=== PATIENT | male | born 1960 | race Caucasian/White ===

== ENCOUNTER → 2018-10-07 07:09 | Outpatient (CLI) | payer OTHER, SELFPAY ==
--- NOTE | 2018-10-07 07:19 | RAD_ITS ---
STUDY: X-RAY CHEST REASON FOR EXAM: Male, 58 years old. History of sarcoidosis with left-sided chest pain. TECHNIQUE: PA and lateral views of the chest. COMPARISON: 10/13/2015. FINDINGS: The previously noted prominent interstitial markings in the lung bases have improved. No new focal infiltrate is seen. There is no demonstrated pleural abnormality. Normal size heart. Normal mediastinum and abhi. Normal visualized pulmonary arteries. There is mild atherosclerotic tortuosity of the aortic arch and descending thoracic aorta. Normal visualized thoracic spine. Normal visualized ribs, clavicles, and shoulders. There is no demonstrated abnormality of the visualized soft tissue structures of the upper abdomen. RAD/Chest PA and Lateral IMPRESSION: No active pulmonary disease. Electronically Signed: Paul Stearns MD at 8:18 EDT Tel , Service support ,
--- NOTE | 2018-10-07 07:28 | MRI_ITS ---
STUDY: MRI BRAIN WITH AND WITHOUT CONTRAST REASON FOR EXAM: Male, 58 years old. Optic neuritis. Episodes of blurred vision. Lightheaded. TECHNIQUE: Standardized multiplanar fat and water weighted pulse sequences were obtained. Dotarem 20 IV was administered for the contrast portion of the examination. Thin multiplanar sections through the orbits were also performed. COMPARISON: None. FINDINGS: No restricted diffusion to suspect acute or subacute ischemic infarct. No focal signal abnormalities throughout the brain parenchyma. Normal size of the ventricles and extra-axial spaces for the patient's age. Normal white matter tracts of the supratentorial brain. Normal bilateral basal ganglia. Normal thalami. There is no extra-axial fluid accumulation. Normal flow voids within the major intracranial circulation suggesting patency by spin echo criteria. Normal venous enhancement. There is no enhancing intra-axial or extra-axial abnormality. Normal sella turcica, pituitary gland, infundibular stalk, optic chiasm and hypothalamus. Normal tectal plate and pineal gland. Normal midbrain, sofia and medulla. Normal cerebellum. Normal basal cisterns. Normal bilateral temporal bones. Normal bilateral internal auditory canals. No demonstrated orbital abnormality, within the constraints of a routine brain study. Normal visualized paranasal sinuses. Normal calvarium and skull base. Normal visualized soft tissue structures. Normal visualized upper cervical spine. MRI/Brain W/WO Contrast IMPRESSION: Normal unenhanced and enhanced MRI of the brain and orbits. Electronically Signed: Nilo Flores MD at 13:36 EDT , Service support ,
== END ==
PROVIDERS: Family Provider Family Medicine; PCP Family Medicine; Referring Provider Psychiatry & Neurology Neurology; Visit Provider Psychiatry & Neurology Neurology
DX: H46.9 Unspecified optic neuritis (principal); D86.9 Sarcoidosis, unspecified
CPT/HCPCS: 70553; 71046; A9575

== ENCOUNTER 2019-09-17 10:45 | Observation (INO) | payer OTHER, SELFPAY ==
[2019-09-17 10:13] VITALS: BMI 27.1
[2019-09-17 10:46] VITALS: BP 151/82; PULSE 74; RESP 16; TEMP 36.6; O2SAT 99; BMI 27.2
--- NOTE | 2019-09-17 11:03 | EKG12_ITS ---
Test Reason : DIZZINESS Blood Pressure : / mmHG Vent. Rate : 067 BPM Atrial Rate : 067 BPM P-R Int : 144 ms QRS Dur : 092 ms QT Int : 394 ms P-R-T Axes : 052 -35 007 degrees QTc Int : 416 ms Normal sinus rhythm Left axis deviation Minimal voltage criteria for LVH, may be normal variant Abnormal ECG Confirmed by CHRIST LYNCH, FINESSE ([id number]), mapping editor SEBASTIÁN NEIL ([id number]) on 09/19/2019 1:47:34 PM Referred By: NETTA Confirmed By:FINESSE POLO MD
--- NOTE | 2019-09-17 11:04 | ED.DCSUM_ITS ---
- ER Visit Summary Date of Service: 09/17/19 Chief Complaint: Lightheadedness History of Present Illness: The patient is a 59 M presenting with intermittent lightheadedness. He states this has been ongoing for the past week. He states last night he started having chest pressure in his left chest radiating to the left side of his neck. He denies shortness of breath or associated diaphoresis. He has had intermittent nausea. He has had a mild cough which he states is improving. He denies fever or other complaints. He has history of hypercholesterolemia and family history of early heart disease. He is not a smoker. Physical Examination: Vitals are stable. Patient is afebrile. Alert no acute distress. HEENT exam is unremarkable. Neck is supple. Lungs are clear and equal bilaterally. Heart is regular rate and rhythm. Abdomen is soft nontender nondistended. Extremities are unremarkable. Skin is warm and dry. No focal neurologic deficit. Remainder of exam is unremarkable. Emergency Department Course and Treatment: Patient was given aspirin. EKG is sinus rhythm rate of 67 with no acute ischemic changes. Chest x-ray shows no acute process. CBC, chemistries unremarkable. Troponin is negative. He is chest pain-free on reevaluation. Discussed with the hospitalist for observation. Disposition: Observation Impression: Chest pain This note was generated with [employer]-Divers[employer]self dictation software. It may contain incorrect words, spelling, and punctuation that were not noted in review of the chart prior to signing ED Disposition - Plan for ED Patient: Referrals: Chris Ortiz MD [Primary Care Provider] -
--- NOTE | 2019-09-17 11:05 | RAD_ITS ---
STUDY: X-RAY CHEST REASON FOR EXAM: Male, 59 years old. LIGHTHEADEDNESS, NAUSEA AND INDIGESTION TECHNIQUE: Single AP portable view of the chest. COMPARISON: 10/07/2018 FINDINGS: The lungs are clear and expanded. There is no demonstrated pleural abnormality. Normal size heart. Normal mediastinum and abhi. Normal visualized pulmonary arteries. Normal visualized aortic arch and descending thoracic aorta. Normal visualized thoracic spine. Normal visualized ribs, clavicles, and shoulders. There is no demonstrated abnormality of the visualized soft tissue structures of the upper abdomen. RAD/Chest 1 View (Portable) IMPRESSION: Normal x-ray examination of the chest. Electronically Signed: Daniel Yanes MD at 11:48 EST Tel , Service support ,
[2019-09-17 11:36] LABS: Absolute Lymphocyte Count 1.13 X10^3/uL (0.83-4.51); Absolute Neutrophil Count 3.7 X10^3/uL (2.0-7.7); Basophil# 0.06 X10^3/uL; Basophil% 1.1 % (0-1); Eosinophil# 0.05 X10^3/uL; Eosinophils% 0.9 % (0-5); Hematocrit 48.8 % (40-54); Hemoglobin 15.9 g/dL (13.0-16.5); Lymphocyte # 1.13 X10^3/ul (4.0); Lymphocyte % 20.3 % (19-41); Mean Corp Hgb Conc 32.6 g/dL (32-36); Mean Corpuscular Hgb 29.4 pg (27.0-32.0); Mean Corpuscular Volume 90.2 fL (80-94); Mean Platelet Vol. 11.9 fl (6.2-12.0); Monocyte# 0.53 X10^3/uL; Monocyte% 9.5 % (0-10); NRBC Flagged by Analyzer 0 % (0-5); Neutrophil # 3.72 X10^3/uL (2.7-7.7); Neutrophil % 66.8 % (47-70); Platelet Count 243 K/mm3 (150-450); RBC Distribution Width CV 12.2 % (11.6-14.6); RBC Distribution Width SD 40.1 fl (35.1-43.9); Red Blood Count 5.41 M/mm3 (4.6-6.2); White Blood Count 5.6 K/mm3 (4.4-11.0)
[2019-09-17 11:51] LABS: Anion Gap 5 (5-15); BUN 13 mg/dL (7-18); BUN/Creat Ratio 12.6 RATIO (10-20); Calcium,Total 9.3 mg/dL (8.5-10.1); Chloride 106 mmol/L (98-107); Creatinine, Serum 1.03 mg/dL (0.70-1.30); EST Glomerular Filtration Rate 79 mL/min (>60); Est Glom Filt Rate - Afr Amer 95 mL/min (>60); Estimated Creatinine Clearance 80.72 ml/min; Glucose 93 mg/dL (74-106); Sodium Level 141 mmol/L (136-145)
[2019-09-17] MEDS: Aspirin 325 MG Tablet PO (13:00)
[2019-09-17 13:01] VITALS: PULSE 64; RESP 18; O2SAT 100; O2SAT 98
[2019-09-17 14:12] VITALS: BMI 26.0
[2019-09-17 14:20] VITALS: BP 159/94; PULSE 67; RESP 16; TEMP 36.4; O2SAT 97
[2019-09-17 14:55] VITALS: PULSE 67
[2019-09-17 18:25] VITALS: BP 124/76; PULSE 65; RESP 18; TEMP 36.7; O2SAT 96
[2019-09-17 19:00] VITALS: PULSE 75
--- NOTE | 2019-09-17 19:02 | HP.PCM_ITS ---
Problem List (1) Generalized abdominal pain Status: Acute (2) Left-sided chest pain Status: Acute History of Present Illness Date of Admission: 09/17/19 Chief Complaint: Left-sided chest pain, generalized abdominal pain, abdominal bloating The patient is a 59 year old M who was seen in the emergency room at [facility] with a chief complaint of generalized abdominal pain and bloating with radiation of the discomfort into his left chest area and then radiation of the discomfort into the left neck area. He describes the chest discomfort as a pressure, nothing precipitates the discomfort, nothing makes it go away. Patient is vague on how long the discomfort lasts. Patient denies any shortness of breath, nausea, or diaphoresis. Patient states that the symptoms have been going on for approximately a week. Work-up in the emergency room included an EKG which showed normal sinus rhythm without evidence of ischemic changes, chest x-ray was unremarkable, labs were unremarkable. Patient was placed into observation status on PCU, he will undergo a nuclear stress test tomorrow if his enzymes remain normal. Past Medical History Past Medical History (Chronic Problems): Chronic Problems (Last Reviewed 09/17/19 @ 10:13 by Mejia Martinez) Sarcoidosis (Chronic) History of diverticulitis of colon (Chronic) Diverticular disease of colon (Chronic) Chronic pain syndrome (Chronic) Benign essential hypertension (Chronic) Allergies meloxicam [From Mobic] Allergy (Verified 09/17/19 10:48) Unknown pregabalin [From Lyrica] Allergy (Verified 09/17/19 10:48) Unknown Home Medications: Ambulatory Orders Medication Instructions Recorded NK 09/17/19 Surgical History: cholecystectomy, herniorrhaphy Psychiatric History: No pertinent psych hx Lives: Spouse/ Significant Other Smoking Status: Never smoker Tobacco Use: Non-smoker Alcohol: None Drugs: None - *Family History Maternal History Items: No pertinent history Paternal History Items: Cancer, Heart Disease Sibling History Items: Cancer - Colon cancer Review of Systems Constitutional: Denies: Anorexia, Chills, Fever, Night Sweats, Malaise, Weakness, Weight Change, Fatigue Eyes: Denies: Cataracts, Conjunctivae Inflammation, Double vision, Drainage HEENT: Denies: Difficulty Swallowing, Dysphasia, Ear Pain, Eye Pain, Hearing Changes, Nasal bleeding, Nasal Congestion, Post Nasal Drip Cardiovascular: Reports: Chest Pain, Chest Pressure. Denies: Claudication, Chest Tightness, Edema, Heaviness, Orthopnea, Palpitations, Paroxysmal Noc. Dyspnea Respiratory: Denies: Cough, Hemoptysis, Pleuritic Pain, Shortness of Breath, Shortness of breath at rest, Shortness of breath upon exertion, Sputum production Gastrointestinal: Reports: - - Patient complains of bloating over the past week. Denies: Abdominal Pain, Constipation, Diarrhea, Hematemesis, Hemato chezia, Nausea, Melena, Vomiting Genitourinary: Denies: Dysuria, Frequency, Hematuria, Hesitancy, Urgency Musculoskeletal: Denies: Back Pain, Foot Pain, Hand Pain, Joint Pain, Joint stiffness, Joint swelling, Joint Tenderness, Leg Pain Skin: Denies: Dryness, Pruritis, Rash Neurological: Denies: Blurred vision, Double vision, Change in Speech, Slurred speech, Difficulty swallowing, Focal weakness, Headaches, Incoordination, Numbness, Tingling Psychiatric: Denies: Anxiety, Depression, Homicidal Ideations, Suicidal Ideations Endocrine: Denies: Change in Body Habitus, Heat/ Cold Intolerance, Polydipsia, Polyuria Hematologic/ Lymphatic: Denies: Adenopathy, Anemia, Easy Bruising, Easy Bleeding, Petechiae, Purpura VTE Information - Inpt Only VTE Present on Admission: No VTE Mechan Device Prophylaxis: None VTE Pharm Prophylaxis ordered?: No Reason prophylaxis not ordered:: Treatment Not Indicated Patient Problems: Active and Suspected Problems (Last Reviewed 09/17/19 @ 10:13 by Mejia Martinez) Generalized abdominal pain (Acute) Left-sided chest pain (Acute) - Physical Exam Vitals/I&O's: Vital Signs Temp Pulse Resp BP Pulse Ox 98.1 F 65 18 124/76 H 96 09/17/19 18:25 09/17/19 18:25 09/17/19 18:25 09/17/19 18:25 09/17/19 18:25 Oxygen Delivery Method Room Air Weight: 82.3 kg Body Mass Index (BMI) 26.0 Intake and Output for Last 24 Hours 09/15/19 09/16/19 09/17/19 23:59 23:59 23:59 Intake Total 800 / 800 Balance 800 / 800 General: Alert, Oriented x3, Cooperative, No apparent distress, Well developed, Well nourished HEENT: Atraumatic, PERRLA, EOMI, Normocephalic Oral: Moist Mucosa Neck: Supple, No JVD, Negative Carotid Bruits, Trachea Midline, Thyroid Normal Size and Texture Lungs: Clear to auscultation, Normal air movement, No rhonchi, No wheeze, No rales Cardiovascular: Regular rate, Regular Rhythm, Normal S1, Normal S2, No murmurs, PMI Normal, No rub noted, No Gallop Abdomen: Bowel Sounds Present, Soft, Non Tender, Non-Distended Extremities: No clubbing, No cyanosis, No edema, Capillary Refill Less than 3 Seconds Skin: No rashes, No breakdown Musculoskeletal: No Tenderness to Palpation of Joints or Extremities Neurological: Cranial nerves II-XII grossly intact, Neuro grossly intact, Sensory exam intact to light touch and pain Psych/Mental Status: Normal Affect, Appropriate, Alert and oriented to time, place, person, mood and affect Laboratory Results 09/17/19 11:25: WBC 5.6, RBC 5.41, Hgb 15.9, Hct 48.8, MCV 90.2, MCH 29.4, MCHC 32.6, RDW Std Deviation 40.1, RDW Coeff of Isis 12.2, Plt Count 243, MPV 11.9, Immature Gran % (Auto) 1.400 H, Neut % (Auto) 66.8, Lymph % (Auto) 20.3, Pondera % (Auto) 9.5, Eos % (Auto) 0.9, Baso % (Auto) 1.1 H, Absolute Neuts (auto) 3.7, Absolute Lymphs (auto) 1.13, Nucleated RBC % 0 09/17/19 11:25: Sodium 141, Potassium 4.0, Chloride 106, Carbon Dioxide 30.0, Anion Gap 5, BUN 13, Creatinine 1.03, Estim Creat Clear Calc 80.72, Est GFR (MDRD) Af Amer 95, Est GFR (MDRD) Non-Af 79, BUN/Creatinine Ratio 12.6, Glucose 93, Calcium 9.3, Troponin I < 0.015 09/17/19 14:52: Troponin I < 0.015 09/17/19 17:25: Troponin I < 0.015 Current Medications Famotidine (Pepcid) 20 mg PO BID MARY JANE Sodium Chloride () 250 mls @ 15 mls/hr IV .[id number] PRN PRN Reason: Saline Flush Sodium Chloride () 250 mls @ 15 mls/hr IV .[id number] PRN PRN Reason: Additional IVPB Infusion Morphine Sulfate () 4 mg IV Q3H PRN PRN PRN Reason: Pain Score 6-10/10 Sodium Chloride () 10 - 40 ml IV UD PRN PRN Reason: SALINE FLUSH Assessment/Plan All Active Problems (Last Reviewed 09/17/19 @ 10:13 by Mejia Martinez) Generalized abdominal pain (Acute) Left-sided chest pain (Acute) Acne comedone (Resolved) Allergic rhinitis (Resolved) #1 chest [id number] in nature-etiology unclear, may be related to a gastrointestinal etiology as patient complains of abdominal bloating and generalized abdominal discomfort-patient was placed into observation status on PCU, cardiac enzymes will be cycled, will undergo an exercise nuclear stress test tomorrow if his enzymes remain normal. #2 abdominal bloating-etiology unclear-patient is currently taking Pepcid at home but he states it does not help with his bloating, patient may need further work-up as an outpatient if his GI symptoms continue. I told the patient that I would recommend changing to omeprazole when he is discharged home and discontinuing Pepcid. He will need follow-up with his PCP Code Visit OBSV E&M: 42570 Initial observation care L3
[2019-09-17] MEDS: Famotidine 20 MG Tablet PO (21:47)
[2019-09-18 00:15] VITALS: BP 121/73; PULSE 68; RESP 16; TEMP 36.7; O2SAT 98
[2019-09-18 02:59] VITALS: PULSE 64
--- NOTE | 2019-09-18 05:55 | EKG12_ITS ---
Test Reason : AM EKG Blood Pressure : / mmHG Vent. Rate : 066 BPM Atrial Rate : 066 BPM P-R Int : 152 ms QRS Dur : 090 ms QT Int : 408 ms P-R-T Axes : 051 -43 -18 degrees QTc Int : 427 ms Normal sinus rhythm Left axis deviation Abnormal ECG When compared with ECG of 17-SEP-2019 11:17, MANUAL COMPARISON REQUIRED, DATA IS UNCONFIRMED Confirmed by THI RIVAS ([id number]), associate entertainment editor AILEEN CANNON ([id number]) on 09/19/2019 3:15:21 PM Referred By: DR QUIROZ Confirmed By:THI RIVAS
[2019-09-18] MEDS: 0.9% Saline Lock 10 ML Syringe IV (06:07)
[2019-09-18 06:15] VITALS: BP 127/81; PULSE 68; RESP 16; TEMP 36.7; O2SAT 96
[2019-09-18 07:00] VITALS: PULSE 66
--- NOTE | 2019-09-18 09:49 | STRESSREP ---
Stress Test Report Date: 09-18-2019 Procedure: Exercise tolerance test/imaging study Indications: Chest pain Consent: Per the patient Procedure: The patient exercised on a David protocol for 12 minutes completing Stage IV achieving a peak heart rate of 162 bpm (100% % predicted maximal heart rate) with a peak blood pressure 180/90 mmHg and a peak MET capacity of 13 METs. The baseline ECG demonstrated normal sinus rhythm. The peak exercise ECG demonstrated no obvious ECG changes. There was an isolated PVC during recovery. The functional capacity was considered good. There was no complaint of chest discomfort during exercise or recovery. The examination was discontinued secondary to fatigue. Impression: 1. Technically adequate (percent predicted maximal heart rate greater than 85%) exercise tolerance test 2. Peak exercise ECG with no obvious ECG changes 3. There was an isolated PVC during recovery 4. Nuclear images pending Myocardial perfusion imaging study: Technique: The patient was injected with 12.0 mCi of technetium 99m Cardiolite and subsequently rest SPECT Cardiolite nuclear imaging was obtained in the horizontal long, vertical long, and short axis views. The patient exercised on a David protocol for 12 minutes completing Stage IV achieving a peak heart rate of 162 bpm (100% % predicted maximal heart rate) with a peak blood pressure 180/90 mmHg and a peak MET capacity of 13 METs. The patient was injected with 34.0 mCi of technetium 99m Cardiolite and subsequently stress SPECT Cardiolite nuclear imaging was obtained in the horizontal long, vertical long, and short axis views. A gated Cardiolite study at peak stress was obtained. Interpretation: Rest and stress SPECT Cardiolite nuclear imaging status post realignment, normalization, and attenuation correction, demonstrates relative uniform tracer uptake and myocardial perfusion appearing within normal limits. There is end systolic thickening and brightening. The gated Cardiolite study demonstrates myocardial thickening and inward wall motion. The reported LVEF is 66 %. Impression: 1. Rest and stress SPECT Cardiolite nuclear imaging demonstrate relative uniform tracer uptake and myocardial perfusion appearing within normal limits. 2. The gated Cardiolite study reports an LVEF of 66 %. This note was generated with Degordian[employer] software. It may contain incorrect words, spelling, and punctuation that were not noted in checking the note before signing.
--- NOTE | 2019-09-18 10:29 | PCM.DC ---
- Discharge Diagnoses Current Active Problems: Current Active and Chronic Problems (Last Reviewed 09/17/19 @ 10:13 by Mejia Martinez) Generalized abdominal pain (Acute) Left-sided chest pain (Acute) You will use the following diet at home:: No restrictions Your food should be the consistency of: Regular Your liquids should be the consistency of: Regular/Thin Discharge Activity: Return to Normal Activity Allergies/Adverse Reactions: Allergies meloxicam [From Mobic] Allergy (Verified 09/17/19 10:48) Unknown pregabalin [From Lyrica] Allergy (Verified 09/17/19 10:48) Unknown Medications to take at Discharge Pantoprazole Sodium [Protonix] 40 mg PO DAILY #30 tab 09/18/19 The following prescriptions were given: Pantoprazole Sodium [Protonix] 40 mg PO DAILY #30 tab Transmission Status: Pending to [facility]/pharmacy #[id number] Primary Care Physician: Chris Ortiz MD [Primary Care Provider] - Please follow up with your Primary Care Physician in: in 1-2 weeks Test Results: Test results from this visit will be discussed in further detail at your follow-up appointment, if applicable.
[2019-09-18 10:51] VITALS: BP 127/87; PULSE 68; RESP 16; TEMP 36.6; O2SAT 97
--- NOTE | 2019-09-19 09:02 | DS.PCM_ITS ---
Discharge Date and Diagnosis Date of Admission: 09/17/19 Date of Discharge: 09/18/19 - Primary Discharge Diagnosis #1 atypical chest pain-etiology unknown #2 abdominal bloating-etiology unknown - Secondary Discharge Diagnosis Chronic Problems (Last Reviewed 09/17/19 @ 10:13 by Mejia Martinez) Sarcoidosis (Chronic) History of diverticulitis of colon (Chronic) Diverticular disease of colon (Chronic) Chronic pain syndrome (Chronic) Benign essential hypertension (Chronic) Hospital Course and Treatment Operations: None Procedures: Nuclear stress test Summary of Care Provided: The patient is a 59 year old M was seen in the emergency room at [facility] with a chief complaint of abdominal bloating, generalized abdominal discomfort, and chest pain rating up from the abdomen. Work-up in the emergency room including troponin, EKG, and chest x-ray was unremarkable. Patient was placed in observation status on PCU, cardiac enzymes are cycled and remained normal. Patient underwent a nuclear treadmill stress test on 09/18/2019 which was negative for reversible ischemia. Etiology of the patient's abdominal bloating and discomfort was unknown. On 09/18/2019, patient was seen and examined: On examination he appeared in good health and spirits. Vital signs as documented. Skin warm and dry and without overt rashes. Neck without JVD. Lungs clear. Heart exam notable for regular rhythm, normal sounds and absence of murmurs, rubs or gallops. Abdomen unremarkable and without evidence of organomegaly, masses, or abdominal aortic enlargement. Extremities nonedematous. Neuro: Cranial nerves II through XII are grossly intact, no focal motor deficits were noted, sensation to light touch and pinprick intact. Psych: Patient is alert and oriented x3, he does not appear anxious or depressed Patient was discharged home in stable condition on 09/18/2019 - Physical Exam Vitals/I&O's: Vital Signs Temp Pulse Resp BP Pulse Ox 97.8 F 68 16 127/87 H 97 09/18/19 10:51 09/18/19 10:51 09/18/19 10:51 09/18/19 10:51 09/18/19 10:51 Oxygen Delivery Method Room Air Weight: 82.3 kg Body Mass Index (BMI) 26.0 Intake and Output for Last 24 Hours 09/17/19 09/18/19 09/19/19 23:59 23:59 23:59 Intake Total 1200 / 1200 Balance 1200 / 1200 Discharge Activity: Return to Normal Activity Home Medications: Medications to take at Discharge Pantoprazole Sodium [Protonix] 40 mg PO DAILY #30 tab 09/18/19 Following Prescrptions Were Given to Patient: Pantoprazole Sodium [Protonix] 40 mg PO DAILY #30 tab Transmission Status: Received by [facility]/pharmacy #[id number] Primary Care Physician: Chris Ortiz MD [Primary Care Provider] - Please follow up with your Primary Care Physician in: in 1-2 weeks Disposition: Home Minutes spent on discharge:: 30 Patient Condition:: Stable Medical Necessity - Tobacco Use Smoking Status: Never smoker Tobacco Use: Non-smoker Meaningful Use Info Meaningful Use Diagnoses (Choose all that apply): None applicable Code Visit OBSV E&M: 11280 Observation care discharge
== END 2019-09-18 10:30 | disposition home or self-care (01) ==
LOC: ED 11:22 → PCU 13:11
PROVIDERS: Admitting Provider Internal Medicine; Emergency Provider Emergency Medicine; PCP Family Medicine; Visit Provider Internal Medicine
DX: R07.89 Other chest pain (principal); R14.0 Abdominal distension (gaseous); R42 Dizziness and giddiness; E78.00 Pure hypercholesterolemia, unspecified; Z82.49 Family history of ischemic heart disease and other diseases of the circulatory system; I10 Essential (primary) hypertension; R94.31 Abnormal electrocardiogram [ECG] [EKG]
CPT/HCPCS: 36415; 71045; 78452; 80048; 84484; 85025; 93005; 93017; 99218; 99285; A9500; A4216; G0378

== ENCOUNTER → 2019-10-25 | Outpatient (CLI) | payer OTHER, SELFPAY ==
[2019-09-17 14:12] VITALS: BMI 26.0
--- NOTE | 2019-10-25 13:40 | CT_ITS ---
STUDY: CT PELVIS WITH CONTRAST REASON FOR EXAM: Male, 59 years old. PELVIC PAIN X 1 MONTH RADIATION DOSAGE (If Supplied By Facility): CTDIvol = ( 28.20 ) mGy, DLP = ( 862.78 ) mGycm TECHNIQUE: Transaxial imaging of the pelvis was performed without oral contrast. IV 100mL Isovue-300 was administered intravenously. Individualized dose optimization techniques were used for this CT. COMPARISON: None. FINDINGS: Normal urinary bladder. The prostate is enlarged. It measures 4.2 cm by 6.6 cm. This causes indentation at the bladder base worse on the right bladder base. Normal visualized small intestine. There are multiple colonic diverticula of the sigmoid colon consistent with chronic diverticulosis. There is no pelvic fluid. There is no pelvic lymphadenopathy or mass lesion. Normal visualized pelvic arteries. There is evidence of prior repair of a left inguinal hernia utilizing mesh. Small umbilical hernia containing fat. Degenerative changes at the L5-S1 level. CT/Pelvis WITH IV Contrast IMPRESSION: Prostatic hypertrophy with indentation at the bladder base. Sigmoid diverticulosis. Electronically Signed: Hussein Rosa, at 15:09 EDT , Service support ,
== END | disposition home or self-care (01) ==
LOC: CT 13:38
PROVIDERS: PCP Family Medicine; Referring Provider Urology; Visit Provider Urology
DX: N50.819 Testicular pain, unspecified (principal)
CPT/HCPCS: 72193; Q9967

== ENCOUNTER → 2023-04-02 | Outpatient (CLI) | payer OTHER, SELFPAY ==
--- NOTE | 2023-04-02 09:59 | MRI_ITS ---
EXAM: MR CERVICAL SPINE WITHOUT INTRAVENOUS CONTRAST CLINICAL INDICATION: CERVCAL RADICULOPATHY, right hand weakness TECHNIQUE: Multiplanar and multisequence MR images of the cervical spine without intravenous contrast were performed. COMPARISON: No relevant prior studies available. FINDINGS: VERTEBRAE: No fracture or traumatic subluxation. No suspicious marrow space signal abnormalities. Normal cervical lordosis. SPINAL CORD: Unremarkable in signal and morphology. SOFT TISSUES: No significant abnormality. No prevertebral soft tissue swelling. LYMPH NODES: No significant abnormality. There is no cervical adenopathy. DISCS/SPINAL CANAL/NEURAL FORAMINA: C2-C3: Mild bilateral facet arthrosis. No disc herniation, spinal canal stenosis, or neural foraminal narrowing. C3-C4: Facet, endplate, and uncovertebral joint arthrosis with a disc bulge. Mild spinal canal stenosis and moderate right greater than left neural foraminal narrowing. C4-C5: Mild facet and uncovertebral joint arthrosis. Mild to moderate left greater than right neural foraminal narrowing. Mild disc bulge resulting in mild spinal canal stenosis. C5-C6: Mild bilateral facet arthrosis. No disc herniation, spinal canal stenosis, or neural foraminal narrowing. C6-C7: Mild bilateral facet arthrosis. No disc herniation, spinal canal stenosis, or neural foraminal narrowing. C7-T1: No significant abnormality. No disc herniation, spinal canal stenosis, or neural foraminal narrowing. MRI/Spine Cervical (Routine) IMPRESSION: Multilevel degenerative changes. Mild multilevel spinal canal and mild to moderate neural foraminal stenosis. No acute osseous findings. No spinal cord signal abnormality. Electronically Signed: Dima Hussein DO at 12:30 EDT ,
== END | disposition home or self-care (01) ==
LOC: MRI 09:51
PROVIDERS: PCP Family Medicine; Referring Provider Chiropractor; Visit Provider Chiropractor
DX: M54.12 Radiculopathy, cervical region (principal)
CPT/HCPCS: 72141

== ENCOUNTER 2023-09-05 18:00 | Outpatient (RCR) | payer OTHER, SELFPAY ==
--- NOTE | 2023-08-19 07:52 | HP.OTEVAL_ITS ---
Patient's Visit Information Visit Information Visit Information: DAVID MI is a 63 year old M, referred to Occupational Therapy by MADISON PATEL, with a diagnosis of right hand weakness. Date of Evaluation: 08/09/23 Occupational Therapist: Elise Bowles, PINEDAR/Olga, CHT Subjective Subjective: This 63 year old male was seen for OT eval with dx of right hand weakness. pt states he has had issues for about a year or more. pt states he thought he had symptoms of CTS/ ulnar nerve but when his DrMarivel sent him to neurologist for nerve testing was told there was nothing indicating nerve issue. has had bone sper in right shoulder with sx in about . pt states he did have MRI with and nerve conduction September of 2022. ( pt to bring MRI and Nerve conduction test to next apt) pt states he has been doing some exercise on his own to improve his strength. pt would like to know what more he can do to improve his right hand function. ROM ROM Comments: pt demo with right claw hand deformity no ability to adduct right LF Hyper ext at MCP causing PIP flex. muscle wasting at dorsal interosseous muscles Strength Shoulder: shoulder flexion right 15# left 26.8 ext right 34.5# left 35 Elbow: biceps right 52# left 39.7 triceps right 47# left 48# Wrist: right 15# left 17# [employer] Professor: right 60# left 100# Lateral Pinch: right 6# left 18# Tripod Pinch: right 0 left 14# Sensation Sensation Comments: denies issues Goals Goal:: pt will demo a increase in right hand supervisor felting strength by 10# or greater by d/c pt will dem a increase in lateral and tripod pinch by 6# or greater by d./c to increase pts ind. with ADLs and IADLs. Goal:: Pt will demo understanding of using supportive bracing 80% of workday/ADLS to decrease MCP hyper-extension and improve use of right hand with ADLs and IALDs by end of 3rd session. Goal:: pt will demo understanding of HEP for PROM to prevent contractures by end of 3rd visit. Rehabilitation General Assessment: pt demo with ulnar nerve involvement of motor innervations. Pt demo with weakness of supervisor felting, demo with limited MP flexion and a claw hand deformity. pt would benefit from skilled OT services 3-4 visits to ed. 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 custom claw hand deformity splint and ed. pt on use. pt demo understanding and agree to POC. Rehabilitation Potential: Fair Anticipated Interventions Anticipated Interventions: Strengthening, Orthoses, Joint Protection/Energy Conservation, Ergonomic Education, Fine Motor Coord/Kevon, Education re assistive Equipment, Education re Diagnosis and Home Program Visit Plan General Plan: Therapist will fabricate ulnar nerve orthosis to limit MCP hyper ext- allowing PIPs to increase in active extension. therapist will Cam. dorsal blocking orthosis for MCP to allow for PIP ext. blocking ex. TEXT: Thank you for the opportunity to evaluate your patient. For Medicare and Medicare HMO plans, please review the plan of care and approve it. It will need to be FAXED BACK to us at [phone] for Medicare purposes. Please let me know if there are questions or concerns regarding this plan of care. Physician Signature: Date:
--- NOTE | 2023-11-02 14:36 | HP.OT.NRP ---
Patient Information Patient Information: DAVID MI was seen in my office for initial evaluation on 08/09/23. The following Plan of Care was established for this patient: Anticipated Interventions Anticipated Interventions: Strengthening, Orthoses, Joint Protection/Energy Conservation, Ergonomic Education, Fine Motor Coord/Kevon, Education re assistive Equipment, Education re Diagnosis and Home Program Last Seen Last Seen: This patient was last seen in our office 09/05/23. Pertinent comments regarding their Occupational therapy will appear below: pt was seen for 3 OT session. Pt demo with ulnar nerve claw hand deformity- pt was seen for spine drMarivel as his nerve conduction test indicated compression at cervical levels C6-7. pt states they ref. pt to hand dr. pt at this time has not scheduled further apts. pt is working on strengthening the muscle he has. until he get to see . Pt has not scheduled further apts and is d/c at this time due to lapse in services. At this point I will be discontinuing this patient from occupational therapy. I would be happy to see this patient again in the future if found appropriate by the physician. Thank you! Elise Bowles, OTR/L, CHT
== END 2023-09-05 19:00 | disposition home or self-care (01) ==
LOC: OT 18:00
PROVIDERS: PCP Family Medicine
DX: R29.898 Other symptoms and signs involving the musculoskeletal system (principal)
CPT/HCPCS: 97110; 97166; 97530

== ENCOUNTER 2025-04-11 10:52 | Emergency (ER) | payer OTHER, SELFPAY ==
[2025-04-11 10:55] VITALS: BP 147/91; PULSE 64; RESP 16; TEMP 36.6; O2SAT 100; BMI 25.6
== END 2025-04-11 11:30 | disposition left against medical advice (07) ==
LOC: ED 11:32
PROVIDERS: PCP Family Medicine
DX: Z53.21 Procedure and treatment not carried out due to patient leaving prior to being seen by health care provider (principal)

== ENCOUNTER 2025-05-05 06:39 | Emergency (ER) | payer BC, SELFPAY ==
[2025-05-05 06:40] VITALS: BP 168/96; PULSE 68; RESP 16; TEMP 36.3; O2SAT 98; BMI 25.9
--- NOTE | 2025-05-05 07:06 | RAD_ITS ---
PROCEDURE: CHEST PA AND LATERAL 05/05/2025 REASON FOR EXAM: CP TECHNIQUE: Procedure Code: RADCXR Modality: DX Procedure: CHEST PA AND LATERAL COMPARISON: None FINDINGS: Hardware and support lines: None. Heart: Negative. Lungs: Negative for infiltrates, or pulmonary edema. Pleura: No pleural thickening. No pleural effusion. Mediastinum and aorta: Negative for hilar adenopathy. Mildly tortuous thoracic aorta. Bones: Mild degenerative changes in the mid to lower thoracic spine. Age- appropriate degenerative changes of the spine. Other: Remainder of the exam negative. RAD/Chest PA and Lateral IMPRESSION: Negative for acute cardiopulmonary disease. Reading Location: [id number]
--- NOTE | 2025-05-05 07:07 | EX.ED.DYSGE1 ---
HPI History of Present Illness Chief Complaint: Hypertension Narrative Narrative: Patient is a 64-year-old male presenting to the emergency department for indigestion and high blood pressure at home. 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 Patient states that he woke up few hours ago because of shortness of breath. Patient states that he got up and burped a few times and pass gas and his symptoms improved. However he did check his blood pressure and it was elevated with systolics in the 190s over 110s. States that he has been dealing with hypertension recently but was given a month by his primary care doctor to get his blood pressure under control using lifestyle changes before being started on medication. Patient states that his symptoms lasted about 10 to 15 minutes. By the time he arrived here they had resolved. He is denying headache, vision changes, chest pain, shortness of breath, abdominal pain, nausea, vomiting, diarrhea at time of evaluation. Denying any focal numbness or weakness. He denies history of DVT or PE. Denies any recent travel, hospitalizations or surgeries. Denies any lower extremity edema. PFSH PFS Medical History Hx of testicular cancer MMN (multifocal motor neuropathy) Home Medications ?Medication ?Instructions ?Recorded ?Last Taken ?Type immune glob,gamm(IgG)10 %-malt-IgA See Rx Instructions IV .COMPLEX 05/05/25 05/03/25 History over 50 mcg/mL intravenous solution (Octagam) Allergy/AdvReac Type Severity Reaction Status Date / Time meloxicam (From Mobic) Allergy Unknown Verified 05/05/25 06:40 pregabalin (From Lyrica) Allergy Unknown Verified 05/05/25 06:40 Surgical History Hx of cholecystectomy Hx of hernia repair Hx of rotator cuff surgery Social History Smoking Status: Never smoker alcohol intake: never ROS ROS ED ROS Narrative see HPI EXAM Physical Exam Narrative Exam Narrative: Vital signs: Reviewed General: Alert and oriented x 3. No acute distress HEENT: Head is normocephalic and atraumatic, sinuses nontender, pupils equal round and reactive. Nares are patent. Oropharynx and throat exams normal. Neck: Supple without lymphadenopathy nontender Cardiovascular: Regular rate and rhythm, no murmurs. No rubs or gallops. Normal S1 and S2 Respiratory: Clear to auscultation bilaterally. No wheezes, rales, rhonchi Abdominal: Soft and nontender. Normal bowel sounds. No guarding or rebound. Nonsurgical abdomen Extremities: No lower extremity edema. No tenderness. No bruising. Normal range of motion. Normal sensation. Skin: No rash or redness. Neurological: Cranial nerves II through XII are grossly intact. Normal strength and sensation. Normal cerebellar function The rest of the physical exam is unremarkable Const Vital Signs: 05/05/25 06:40 05/05/25 06:45 05/05/25 08:43 Temperature 97.4 F L Temperature Source Oral Pulse Rate 68 61 Respiratory Rate 16 12 Respiratory Effort Normal Non-Labored Respiratory Pattern Normal Blood Pressure 168/96 H 138/90 H Blood Pressure Mean 120 106 Pulse Ox 98 97 Oxygen Delivery Method Room Air Room Air 05/05/25 10:00 05/05/25 12:00 05/05/25 12:14 Temperature 97.7 F L Temperature Source Pulse Rate 70 67 67 Respiratory Rate 17 18 18 Respiratory Effort Respiratory Pattern Blood Pressure 154/94 H 136/84 H 136/84 H Blood Pressure Mean 114 101 101 Pulse Ox 97 98 98 Oxygen Delivery Method Room Air Room Air MDM MDM MDM Narrative Medical decision making narrative: Patient is a 64-year-old male presenting to the emergency department for shortness of breath that lasted for about 10 to 15 minutes and now is resolved. Patient was seen and examined. Vitals are stable. Blood pressure on my evaluation was in the systolics of 130s over 90s. Patient resting bed comfortably no acute distress. Patient's blood pressure here is not concerning for a hypertensive emergency. He is asymptomatic at time of evaluation. Given his reports of indigestion will complete a ACS workup to evaluate for a cardiac or pulmonary cause of his reported shortness of breath. I have low concern for pulmonary embolism given he is not tachycardic, not hypoxic, has no significant risk factors other than age and his symptoms have improved and only lasted about 10 to 15 minutes. I would expect the symptoms to be consistent. EKG shows sinus bradycardia with left axis deviation. No ischemic changes noted. No dysrhythmia. CBC with no leukocytosis and a normal hemoglobin. BMP with no significant abnormalities. Troponin initially within normal limits. Chest x-ray reviewed by myself, no opacity, pneumothorax or widened mediastinum. Radiology read with no acute cardiopulmonary disease. Trended troponin up to 27 and then back down to 21. The patient is low risk heart score of 3. I discussed with the patient obtaining a outpatient stress test given the slightly second elevated troponin. He is agreeable. I did consult cardiology, Dr. Toure, who reports that I do not need to consult or discussed with him prior to ordering an outpatient echo and consistent with our department meetings discussion. This was ordered for patient to have done outpatient. Patient was given strict return precautions if he develops any new or worsening symptoms. Patient discharged from the Emergency Department. I do not feel that the patient's evaluation reveals any acute reason for admission at this time. I instructed them to either follow-up with their primary care physician or promptly return to the Emergency Department for reevaluation should symptoms worsen or new symptoms develop. I explained what symptoms would indicate the need to return to the emergency department. Shared decision making was used. The patient voiced understanding of the treatment plan and is agreeable with it. Clinical impression Intermittent dyspnea Chest pain History & Record Review Discussion w/independent historian: Patient and Significant other Lab Data Attestation: I reviewed the patient's lab results. Labs: Laboratory Results - last 24 hr 05/05/25 05/05/25 05/05/25 07:15 09:00 11:16 WBC 4.9 RBC 4.85 Hgb 14.4 Hct 43.6 MCV 89.9 MCH 29.7 MCHC 33.0 RDW Std Deviation 41.9 RDW Coeff of Isis 12.8 Plt Count 191 MPV 11.6 Immature Gran % (Auto) 0.800 Neut % (Auto) 55.7 Lymph % (Auto) 29.8 Dyer % (Auto) 9.7 Eos % (Auto) 2.8 Baso % (Auto) 1.2 H Absolute Neuts (auto) 2.8 Absolute Lymphs (auto) 1.47 Nucleated RBC % 0 Sodium 139 Potassium 3.5 Chloride 104 Carbon Dioxide 24.6 Anion Gap 11 BUN 15 Creatinine 0.91 Estim Creat Clear Calc 85.79 Est GFR (MDRD) Non-Af 94 BUN/Creatinine Ratio 16.7 Glucose 96 Calcium 9.2 Troponin T High Sens 21 Troponin T Hi Sens 2 Hr 27 H Troponin T Hi Sens 4Hr 21 Radiography Chest X-Ray - ED: 2 View, Read by ED Physician, Normal, No Acute Disease and No Infiltrates Diagnostic Testing: Clinical Impression(s) from Imaging Studies Chest X-Ray 05/05/25 07:06 IMPRESSION: Negative for acute cardiopulmonary disease. Reading Location: [facility] Discharge Plan Triage Chief Complaint: Hypertension ED Provider: Rain Parker Dx/Rx/DC Orders Clinical Impression: Indigestion, Dyspnea Instructions: ED Chest Pain, Uncertain Cause, ED Dyspnea Prescriptions: No Action Octagam 10 % solution See Rx Instructions IV .COMPLEX Rx Instructions: intravenously [id number]; two times a week; Other Ambulatory Orders: Stress Test Echo W/Contrast (Routine) Facility: [facility] - Location: [facility] Ordered By: Dr. Rain Parker Primary Care Provider: Care Physician,No Primary Referrals: Chris Ortiz MD [Non-Staff, Family Practice] Activity Restrictions/Additional Instructions: Have the stress test done outpatient. If you develop any new or worsening indigestion, shortness of breath or chest pain you need to return to the emergency department immediately. Your evaluation in the Emergency Department did not reveal any acute reason for admission. However, I want to emphasize that you may be early in the course of a disease process or illness even if it is not present. For this reason you should follow-up within 24 hours for reevaluation with either your primary care physician or if necessary back here in the Emergency Department. You should return to the Emergency Department immediately if your symptoms worsen or new symptoms develop. Print Language: [place] Islander Disposition Disposition: Home, Self Care Discharge Date/Time: 05/05/25 12:19
[2025-05-05 07:22] LABS: Hematocrit 43.6 % (40-54); Hemoglobin 14.4 g/dL (13.0-16.5); Immature Granulocytes Count 0.040 X10^3/uL (0.0-0.0); Mean Corp Hgb Conc 33.0 g/dL (32-36); Mean Corpuscular Volume 89.9 fL (80-94); Mean Platelet Vol. 11.6 fl (6.2-12.0); NRBC Flagged by Analyzer 0 % (0-5); Platelet Count 191 K/mm3 (150-450); RBC Distribution Width CV 12.8 % (11.6-14.6); RBC Distribution Width SD 41.9 fl (35.1-43.9); Red Blood Count 4.85 M/mm3 (4.6-6.2); White Blood Count 4.9 K/mm3 (4.4-11.0)
[2025-05-05 07:44] LABS: Anion Gap 11 (5-15); BUN 15 mg/dL (4-19); BUN/Creat Ratio 16.7 RATIO (10-20); Calcium,Total 9.2 mg/dL (7.6-11.0); Carbon Dioxide 24.6 mmol/L (21.0-32.0); Chloride 104 mmol/L (98-108); Estimated Creatinine Clearance 85.79 ml/min (50-250); Glucose 96 mg/dL (70-99); Potassium 3.5 mmol/L (3.3-5.1); Troponin T High Sensitivity 21 ng/L (<=22)
[2025-05-05 08:43] VITALS: BP 138/90; PULSE 61; RESP 12; O2SAT 97
[2025-05-05 09:24] LABS: Troponin T High Sens 2 HR 27 ng/L (<=22)
--- NOTE | 2025-05-05 09:38 | CM.ED ---
Social Work Date of referral: 05/05/25 Reason for referral: Advanced Care Directives (ACD's) not on file. Referred by: Social Work Identification Patient provided consent to social work visit. Hris Analyst requested patient bring in a copy of ACD's which patient agreed to do. Miriam Ballesteros, [employer] M[employer] AND LATHE OPERATOR, 3D MODELER
[2025-05-05 10:00] VITALS: BP 154/94; PULSE 70; RESP 17; O2SAT 97
[2025-05-05 12:00] VITALS: BP 136/84; PULSE 67; RESP 18; O2SAT 98
[2025-05-05 12:00] LABS: Troponin T High Sens 4 HR 21 ng/L (<=22)
[2025-05-05 12:14] VITALS: BP 136/84; PULSE 67; RESP 18; TEMP 36.5; O2SAT 98
--- NOTE | 2025-05-05 17:08 | EDS_ITS ---
HPI History of Present Illness Chief Complaint: Hypertension PFSH PFS Medical History Hx of testicular cancer MMN (multifocal motor neuropathy) Home Medications ?Medication ?Instructions ?Recorded ?Last Taken ?Type immune glob,gamm(IgG)10 %-malt-IgA See Rx Instructions IV .COMPLEX 05/05/25 05/03/25 History over 50 mcg/mL intravenous solution (Octagam) Allergy/AdvReac Type Severity Reaction Status Date / Time meloxicam (From Mobic) Allergy Unknown Verified 05/05/25 06:40 pregabalin (From Lyrica) Allergy Unknown Verified 05/05/25 06:40 Surgical History Hx of cholecystectomy Hx of hernia repair Hx of rotator cuff surgery Social History Smoking Status: Never smoker alcohol intake: never EXAM Physical Exam Const Vital Signs: 05/05/25 06:40 05/05/25 06:45 05/05/25 08:43 Temperature 97.4 F L Temperature Source Oral Pulse Rate 68 61 Respiratory Rate 16 12 Respiratory Effort Normal Non-Labored Respiratory Pattern Normal Blood Pressure 168/96 H 138/90 H Blood Pressure Mean 120 106 Pulse Ox 98 97 Oxygen Delivery Method Room Air Room Air 05/05/25 10:00 05/05/25 12:00 05/05/25 12:14 Temperature 97.7 F L Temperature Source Pulse Rate 70 67 67 Respiratory Rate 17 18 18 Respiratory Effort Respiratory Pattern Blood Pressure 154/94 H 136/84 H 136/84 H Blood Pressure Mean 114 101 101 Pulse Ox 97 98 98 Oxygen Delivery Method Room Air Room Air MDM MDM Lab Data Labs: Laboratory Results - last 24 hr 05/05/25 05/05/25 05/05/25 07:15 09:00 11:16 WBC 4.9 RBC 4.85 Hgb 14.4 Hct 43.6 MCV 89.9 MCH 29.7 MCHC 33.0 RDW Std Deviation 41.9 RDW Coeff of Isis 12.8 Plt Count 191 MPV 11.6 Immature Gran % (Auto) 0.800 Neut % (Auto) 55.7 Lymph % (Auto) 29.8 Calloway % (Auto) 9.7 Eos % (Auto) 2.8 Baso % (Auto) 1.2 H Absolute Neuts (auto) 2.8 Absolute Lymphs (auto) 1.47 Nucleated RBC % 0 Sodium 139 Potassium 3.5 Chloride 104 Carbon Dioxide 24.6 Anion Gap 11 BUN 15 Creatinine 0.91 Estim Creat Clear Calc 85.79 Est GFR (MDRD) Non-Af 94 BUN/Creatinine Ratio 16.7 Glucose 96 Calcium 9.2 Troponin T High Sens 21 Troponin T Hi Sens 2 Hr 27 H Troponin T Hi Sens 4Hr 21 Radiography Diagnostic Testing: Clinical Impression(s) from Imaging Studies Chest X-Ray 05/05/25 07:06 IMPRESSION: Negative for acute cardiopulmonary disease. Reading Location: [facility] Discharge Plan Triage Chief Complaint: Hypertension ED Provider: Rain Parker Dx/Rx/DC Orders Clinical Impression: Indigestion, Dyspnea Instructions: ED Chest Pain, Uncertain Cause, ED Dyspnea Prescriptions: No Action Octagam 10 % solution See Rx Instructions IV .COMPLEX Rx Instructions: intravenously [id number]; two times a week; Other Ambulatory Orders: Stress Test Echo W/Contrast (Routine) Facility: [facility] - Location: [facility] Ordered By: Dr. Rain Parker Primary Care Provider: Care Physician,No Primary Referrals: Chris Ortiz MD [Non-Staff, Family Practice] Activity Restrictions/Additional Instructions: Have the stress test done outpatient. If you develop any new or worsening indigestion, shortness of breath or chest pain you need to return to the emergency department immediately. Your evaluation in the Emergency Department did not reveal any acute reason for admission. However, I want to emphasize that you may be early in the course of a disease process or illness even if it is not present. For this reason you should follow-up within 24 hours for reevaluation with either your primary care physician or if necessary back here in the Emergency Department. You should return to the Emergency Department immediately if your symptoms worsen or new symptoms develop. Print Language: Bruneian Disposition Disposition: Home, Self Care Discharge Date/Time: 05/05/25 12:19
== END 2025-05-05 12:19 | disposition home or self-care (01) ==
PROVIDERS: Emergency Provider Student in an Organized Health Care Education/Training Program; Visit Provider Student in an Organized Health Care Education/Training Program
DX: K30 Functional dyspepsia (principal); R00.1 Bradycardia, unspecified; R07.9 Chest pain, unspecified; I10 Essential (primary) hypertension; R06.00 Dyspnea, unspecified
CPT/HCPCS: 71046; 80048; 84484; 85025; 93005; 99284; A4216